=== PATIENT | male | born 1995 | race Caucasian/White ===

== ENCOUNTER 2022-06-06 10:40 | Observation (INO) | payer SELFPAY ==
[2022-06-06] VITALS (25 sets, daily range): BP systolic 76–124; BP diastolic 40–84; PULSE 74–142; RESP 13–32; TEMP 36.1–36.7; O2SAT 98–100; BMI 28.3
--- NOTE | ~2022-06-06 | CT_ITS ---
EXAMINATION: CT abdomen pelvis w con DATE: 06/06/2022 13:45 INDICATION: Left lower quadrant and epigastric pain. TECHNIQUE: Computed tomography (CT) of the abdomen and pelvis was performed with 100 cc Omnipaque 350 intravenous contrast. The dose-length product was 407.97 mGy-cm. Automated exposure control and iter ative reconstruction technique were employed. COMPARISON: No prior studies for comparison. FINDINGS: There is left lower lobe airspace disease. Heart size normal. No significant pleural or per icardial effusion. There is gas and fluid in the distended distal esophagus. No significant vascular abnormality. Study limited by motion artifact. The liver, spleen, pancreas, a drenal glands and kidneys are unremarkable given the limitations of the examination. There are fluid- filled small bowel loops which most likely represents ileus or enteritis. No definite obstruction. No free air or free fluid. Bladder is unremarkable. No lymphadenopathy. No significant vascular abnorma lity. IMPRESSION: 1. Fluid-filled nondilated small bowel loops which may represent ileus or enteritis. No definite obst ruction. 2: Focal left lower lobe airspace disease may represent atelectasis or pneumonia Reviewed, dictated and finalized at location L. CTOR OF DISTRIBUTION IMPRESSION: 1. Fluid-filled nondilated small bowel loops which may represent ileus or enter itis. No definite obstruction. 2: Focal left lower lobe airspace disease may represent atelectasis or pneumon ia
--- NOTE | ~2022-06-06 | XR_ITS ---
EXAMINATION: XR chest 2V DATE: 06/08/2022 08:37 INDICATION: Chest pain. TECHNIQUE: Frontal and lateral views of the chest were obtained. COMPARISON: CT abdomen and pelvis 06/06/2022 FINDINGS: The chest demonstrates clear lungs without pneumonia, pleural effusion, or pneumothorax. Th e heart size is normal. There is mild chronic anterior wedging of 2 thoracic vertebral bodies. IMPRESSION: 1. No acute cardiopulmonary disease. Reviewed, dictated and finalized at location A. RNAL AFFAIRS COMMANDER
[2022-06-06 11:40] LABS: Basophils Percent Auto 0.5 % (0.2-1.2); Eosinophils Absolute Auto 0.1 K/mm3 (0-0.3); Eosinophils Percent Auto 2.5 % (0-4.4); Hematocrit 49.1 % (42.0-52.0); Hemoglobin 16.7 g/dL (14.0-18.0); Immature Granulocyte Absolute 0.02 K/mm3 (0.00-0.031); Immature Granulocyte Percent A 0.4 % (0-0.5); Lymphocytes Absolute Auto 1.49 K/mm3 (0.9-3.2); Lymphocytes Percent Auto 26.6 % (18.3-44.2); Mean Corpuscular Hemoglobin 29.9 pg (26-34); Mean Corpuscular Volume 87.8 fl (80-100); Mean Platelet Volume 9.3 fl (7.4-10.4); Monocytes Absolute Auto 0.5 K/mm3 (0.1-0.6); Monocytes Percent Auto 8.9 % (2.6-8.5); Neutrophils Absolute Auto 3.4 K/mm3 (1.3-6.7); Neutrophils Percent Auto 61.1 % (45.5-73.1); Platelet Count Result 265 k/mm3 (150-375); Red Blood Count 5.59 M/mm3 (4.6-6.20); Red Cell Distribution Width 12.3 % (11.5-14.5); White Blood Count 5.6 K/mm3 (4.5-10.0)
[2022-06-06 11:49] LABS: Alanine Aminotransferase 53 U/L (6-50); Albumin Level 5.1 g/dL (3.5-5.1); Anion Gap 9 mmol/L (8-16); Aspartate Amino Transferase 36 U/L (17-59); Bilirubin,Total 0.7 mg/dL (0.2-1.3); Blood Urea Nitrogen 18 mg/dL (9-20); Calcium 9.5 mg/dL (8.4-10.2); Carbon Dioxide 27 mmol/L (22-30); Chloride 105 mmol/L (98-107); Estimated CRCL calculation 152 ml/min; Estimated Glomerular Filt Rate > 60; Glucose 92 mg/dL (65-110); Potassium 4.2 mmol/L (3.4-5.0); Sodium 141 mmol/L (137-145)
[2022-06-06 11:50] LABS: Alkaline Phosphatase 87 U/L (38-126); Lipase 95 U/L (23-300)
[2022-06-06 11:53] LABS: Appearance Urine Clear (Clear); Bilirubin Urine Negative (Negative); Blood Urine Negative (Negative); Color Urine Yellow (Yellow); Glucose Urine UA Negative (Negative); Ketones Urine Negative (Negative); Leukocyte Esterase Ur Negative LEU/UL (Negative); Nitrate Urine Negative (Negative); Protein Urine Negative (Negative); Specific Grav Ur 1.018 (1.001-1.035); Urobilinogen Urine 0.2 mg/dL (<2.0); pH Urine 8.5 (5.0-9.0)
[2022-06-06 11:56] LABS: Add Urine Microscopic? NO
[2022-06-06] MEDS: IPRATROPIUM BR 0.02% INH SOLN 0.5 MG/2.5 ML VIAL INHALATION (13:30)
[2022-06-06] MEDS: ALBUTEROL SULFATE NEB 2.5 MG/3 ML INH INHALATION (13:30)
[2022-06-06] MEDS: methylPREDNISolone SOD SUCC 125 MG VIAL IV PUSH (13:32)
[2022-06-06] MEDS: diphenhydrAMINE HCl INJ 50 MG/ML VIAL IV PUSH ×2 (13:35→21:54)
[2022-06-06] MEDS: FAMOTIDINE 20 MG/2 ML VIAL IV PUSH ×2 (13:59→22:10)
[2022-06-06] MEDS: SODIUM CHLORIDE 0.9% IV 1,000 ML 999 ML IV CONT ×2 (14:00)
--- NOTE | 2022-06-06 14:03 | ED.GENADULT ---
HPI - General Adult General Chief complaint: Abdominal Pain Stated complaint: abd pain Time Seen by Provider: 06/06/22 11:34 History of Present Illness HPI narrative: 26-year-old male presented the emergency department for evaluation of lower abdominal pain that has been ongoing for the past 8 days. Patient states the abdominal pain started a few days ago he described it as a lower abdominal pain that has been worsened with heavy lifting. Patient states he was intermittently having upper abdominal pain as well. Patient denies any prior abdominal surgical history. Patient is primarily Z[place]ian-speaking and the [employer] computer was used. Related Data Allergies Allergy/AdvReac Type Severity Reaction Status Date / Time Iodinated Contrast Media Allergy Severe Anaphylaxis Verified 06/06/22 17:02 [facility] Family History Family History (Updated 06/06/22 @ 18:36 by Radha Merritt RN) Grandparent Diabetes mellitus Father Cirrhosis Social History Social History Alcohol intake: current Drinks per week: 4 Lack of Transportation: No Lack of Food: Never True Current Housing: I Have Housing Concerned About Future Housing: No Difficulty Paying Gas/Electric Bills: No Difficulty Paying for Meds: No Currently Unemployed: No Education: Grade School Difficulty w/ Childcare or Family Care: No Spiritual care concerns: No Course Course Emergency Course: 26-year-old male presenting for abdominal pain. Patient was ordered a CT scan to evaluate for obstruction, hernia, colitis. NIDHI PURVIS was called at CT. Patient was unresponsive for short period of time. This was thought to be secondary to an anaphylactic reaction to the IV contrast. Patient received large dose of epinephrine, instead of the 0.3 mg of epinephrine he received 1 mg of IM epinephrine. Patient was also treated with IV Solu-Medrol, 125 mg and IV Benadryl, 50 mg. Patient had significant improvement in response to these medications. Patient was stabilized in CT and was brought back to his room. By the time the patient was brought back to his room he was alert oriented and states he was feeling improved. Patient was initially denying any complaints of chest pain but did report patient reports he did have 5 minutes of chest pain, EKG was ordered and showed no evidence of acute STEMI. Patient's initial troponin was negative.. Patient states he does have some burning in his abdomen but this is pain that was similar to when he arrived. Patient and family were updated on the medication error and on the plan for admission. Case was discussed with the hospitalist and patient was admitted for further observation for worsening anaphylaxis. Patient's abdominal CT showed evidence of enteritis. Vital Signs Vital signs: Vital Signs Temperature 97.6 F 06/06/22 11:11 Pulse Rate 79 06/06/22 11:11 Respiratory Rate 14 06/06/22 11:11 Blood Pressure 114/64 06/06/22 11:11 Pulse Oximetry 100 06/06/22 11:11 Oxygen Delivery Room Air 06/06/22 11:11 Temperature 96.9 F L 06/06/22 18:30 Pulse Rate 100 06/06/22 18:30 Respiratory Rate 20 06/06/22 18:30 Blood Pressure 111/57 L 06/06/22 18:30 Pulse Oximetry 100 06/06/22 18:30 Oxygen Delivery Room Air 06/06/22 11:11 Medical Decision Making Vital Signs Vital Signs: Vital Signs Temperature 97.6 F 06/06/22 11:11 Pulse Rate 79 06/06/22 11:11 Respiratory Rate 14 06/06/22 11:11 Blood Pressure 114/64 06/06/22 11:11 Pulse Oximetry 100 06/06/22 11:11 Oxygen Delivery Room Air 06/06/22 11:11 Temperature 96.9 F L 06/06/22 18:30 Pulse Rate 100 06/06/22 18:30 Respiratory Rate 20 06/06/22 18:30 Blood Pressure 111/57 L 06/06/22 18:30 Pulse Oximetry 100 06/06/22 18:30 Oxygen Delivery Room Air 06/06/22 11:11 Lab Data Lab results reviewed: Yes I reviewed the patient's lab results. 06/06/22 11:31 06/06/22 11:31 Labs:
[2022-06-06] MEDS: PANTOPRAZOLE SODIUM IV 40 MG VIAL IV PUSH (14:04)
--- NOTE | 2022-06-06 14:12 | ECG_ITS ---
Measurements Intervals [place] Rate: 97 P: 57 VA: 150 QRS: 25 QRSD: 97 T: 42 QT: 284 QTc: 361 Interpretive Statements SINUS RHYTHM BASELINE ARTIFACT NONSPECIFIC T-WAVE ABNORMALITY BORDERLINE ECG NO PREVIOUS ECG AVAILABLE FOR COMPARISON Electronically Signed On 06-06-2022 15:31:48 HYDRAULIC BARKER OPERATOR by Thuan Maldondao M.D.
--- NOTE | 2022-06-06 14:14 | PC.NURSE ---
Rapid Response was called by CT scan around 1330. CT reports after pt started to receive contrast dye pt started coughing and becoming short of breath. pt's face and lips started to swell as well. pt placed on vital sign monitor in CT room. Response team, ICU physician and EDP Hank at bedside in CT. This RN gave 50mg of Benadryl and 125mg of SOLU-Medrol per Dr. Pryor. VORB. 1mg of Epinephrine was given to pt via response team. EDP Dr. Mckinney made aware. pt placed on nonrebreather and albuterol treatment given by respiratory. pt taken to room 14 and report given to ANDRIA Valadez. Family at bedside and strat paste up worker on and at bedside to educate patient and family as well as answer any questions or concerns.
[2022-06-06] MEDS: MORPHINE SULFATE (*CRX) 2 MG/ML INJ IV PUSH (15:20)
--- NOTE | 2022-06-06 15:21 | PC.NURSE ---
Dr. Mckinney gave order to not give the GI cocktail.
[2022-06-06 15:25] LABS: Troponin I < 0.012 ng/mL (0.000-0.034)
--- NOTE | 2022-06-06 16:30 | PM.IMHP ---
H&P: HPI History of Present Illness Date/Time: 06/06/22 16:30 Chief Complaint: Left-sided abdominal pain. Narrative: This is a very pleasant 26-year-old male with no reported medical problems who presented to the emergency department from home for evaluation of left-sided abdominal pain. Patient provides the following history with help of a video polymer chemist service. He reports intermittent, nonradiating left-sided abdominal pain described as stabbing and burning in nature. It seems to occur more frequently following a meal at which time he feels bloated as well. He has tried taking Gas-X with no relief. His bowel movements have been normal but irregular and at times he feels constipated. He has not noticed any blood or mucus in the stool. No significant nausea or vomiting. He has not had fever, chills, or sweats. He has never had similar symptoms. No sick contacts. CBC, CMP, lipase, and UA were all unremarkable. He was sent for a CT of the abdomen/pelvis for further evaluation and shortly after receiving IV contrast dye he began to feel lightheaded, hot all over, and short of breath. He started coughing and CT staff noticed that he had swelling of the face and lips. Rapid response was called after he became hypotensive and briefly unresponsive. He was given 1 mg of epinephrine IM, 50 mg diphenhydramine, and 125 mg of Solu-Medrol with improvement in his symptoms. CT study was limited by motion artifact but did note fluid-filled nondilated small bowel loops which may represent ileus or enteritis. There was no definite obstruction noted. Focal left lower lobe airspace disease was also noted which may represent atelectasis or pneumonia. He has not had any symptoms to suggest pneumonia and denies sick contacts. He also denies dysphagia and concerns for aspiration. He is being admitted in this setting for close monitoring given anaphylaxis and consultation with GI given ongoing abdominal pain. Review of Systems Review of Systems: Twelve systems were reviewed and are negative except for as per HPI. [facility], [facility] Past Medical History Medical History (Updated 06/07/22 @ 01:08 by Claudette Ambrocio PA-C) No significant past medical history Surgical History Surgical History (Updated 06/07/22 @ 01:04 by Claudette Ambrocio PA-C) No history of previous surgery Family History Family History Grandparent Diabetes mellitus Father Cirrhosis Social History Social History (Updated 06/07/22 @ 01:05 by Claudette Ambrocio PA-C) Social History: Surrogate medical decision maker: Kassy Julien, sister ([phone]). Aunt Radha is also an emergency contact ([phone]). Code status: Full code. Smoking status: Never smoker Alcohol intake: current Drinks per week: 4 Substance use: never Lack of Transportation: No Lack of Food: Never True Current Housing: I Have Housing Concerned About Future Housing: No Difficulty Paying Gas/Electric Bills: No Difficulty Paying for Meds: No Currently Unemployed: No Education: Grade School Difficulty w/ Childcare or Family Care: No Additional living arrangements comments: Lives with family in [place]. Additional occupation/education comments: Works at a local [employer]. Spiritual care concerns: No Meds Home Medications and Allergies Allergies Allergy/AdvReac Type Severity Reaction Status Date / Time Iodinated Contrast Media Allergy Severe Anaphylaxis Verified 06/06/22 17:02 Vital Signs Vital Signs - 24 hr 06/06/22 11:11 06/06/22 12:54 06/06/22 13:30 Temperature 97.6 F Pulse Rate 79 74 132 H Respiratory Rate 14 16 32 H Blood Pressure 114/64 124/74 Pulse Oximetry 100 100 Oxygen Delivery Room Air Exam Narrative: General: Mildly ill-appearing gentleman in the semi-Connor position in bed in no acute distress. Weight: 72.72 kg. BMI: 24.4. HEENT: PERRL, EOMI. Sclera anicteric. Conjunctiva mildly
[2022-06-06] MEDS: SODIUM CHLORIDE 0.9% IV 1,000 ML 125 ML IV CONT (16:52)
--- NOTE | 2022-06-06 18:11 | ADMGEN ---
Addendum entered by Radha Merritt RN 06/06/22 18:22: called flavoring oil filterer+ Zaria #[id number] for admission question Original Note: This patient, Horacio Jacobs, was admitted to IMU Room 1809;Snuff Maker machine in room Patient/family oriented to hospital policies and general routines including ID bracelet, bed and alarms, visiting hours, pain management, procedures, bathroom and other care routines, personal items, smoking policy, room service/diet, and visiting hours. Information on how to activate the Rapid Response Team has been discussed. Patient/Family are encouraged to report perceived risks to care and to ask questions if they do not understand what they are told or what they should do.
[2022-06-06] MEDS: ONDANSETRON INJ 4 MG/2 ML VIAL IV PUSH (21:55)
[2022-06-07] VITALS (20 sets, daily range): BP systolic 89–139; BP diastolic 43–65; PULSE 77–116; RESP 16–22; TEMP 36.5–36.9; O2SAT 96–100
[2022-06-07] MEDS: SODIUM CHLORIDE 0.9% IV 1,000 ML 125 ML IV CONT ×3 (00:22→17:51)
[2022-06-07] MEDS: methylPREDNISolone SOD SUCC 125 MG VIAL 60 MG IV PUSH ×4 (00:22→17:52)
--- NOTE | 2022-06-07 06:55 | WPDGICN ---
Assessment and Plan Assessment and plan (1) Abdominal pain: Code(s): R10.9 - Unspecified abdominal pain Status: Acute Assessment and Plan: EGD will be done this morning. (2) Abnormal computed tomography of abdomen and pelvis: Code(s): R93.5 - Abnormal findings on diagnostic imaging of other abdominal regions, including retroperitoneum Status: Acute Assessment and Plan: CT scan was nonspecific but showed air-fluid levels suggestive of ileus (3) Anaphylactic reaction to contrast media: Code(s): T78.2XXA - Anaphylactic shock, unspecified, initial encounter; T50.8X5A - Adverse effect of diagnostic agents, initial encounter Status: Acute Assessment and Plan: He was sent for a CT of the abdomen/pelvis for further evaluation and shortly after receiving IV contrast dye he began to feel lightheaded, hot all over, and short of breath. He started coughing and CT staff noticed that he had swelling of the face and lips. Rapid response was called after he became hypotensive and briefly unresponsive. He was given 1 mg of epinephrine IM, 50 mg diphenhydramine, and 125 mg of Solu-Medrol with improvement in his symptoms. Plan EGD will be done this morning. If no significant findings and he is able to eat, then we may let him go home continue investigation as an outpatient. GI Consult Note Consult date/time: 06/07/22 06:55 HPI: Horacio Jacobs is a 26 year old male who presented to emergency room yesterday with complaints of left upper quadrant and epigastric pain for 8 days. He would sometimes feel worse after eating. He was nauseated but did not vomit. He was taking ibuprofen for that pain. Would help briefly. He has not had a change in bowel habits. There was no fever. His history was obtained through an spanish medical interpreter. He has no prior history of gastrointestinal diseases. He was sent to CT scan where he had a reaction, apparently anaphylaxis. CT scan showed only; 1. Fluid-filled nondilated small bowel loops which may represent ileus or enteritis. No definite obstruction. 2:? Focal left lower lobe airspace disease may represent atelectasis or pneumonia the pain is better today because he has had nothing to eat. Review of Systems Review of Systems: All systems reviewed & are unremarkable except as noted in HPI and below [facility] Past Medical History Medical History (Updated 06/07/22 @ 01:08 by Claudette Ambrocio PA-C) No significant past medical history Surgical History Surgical History (Updated 06/07/22 @ 01:04 by Claudette Ambrocio PA-C) No history of previous surgery Family History Family History Grandparent Diabetes mellitus Father Cirrhosis Social History Social History (Updated 06/07/22 @ 01:05 by Claudette Ambrocio PA-C) Social History: Surrogate medical decision maker: Kassy Julien, sister ([phone]). Aunt Radha is also an emergency contact ([phone]). Code status: Full code. Smoking status: Never smoker Alcohol intake: current Drinks per week: 4 Substance use: never Lack of Transportation: No Lack of Food: Never True Current Housing: I Have Housing Concerned About Future Housing: No Difficulty Paying Gas/Electric Bills: No Difficulty Paying for Meds: No Currently Unemployed: No Education: Grade School Difficulty w/ Childcare or Family Care: No Additional living arrangements comments: Lives with family in [place]. Additional occupation/education comments: Works at a local [employer]. Spiritual care concerns: No Meds Home Medications and Allergies Allergies Allergy/AdvReac Type Severity Reaction Status Date / Time Iodinated Contrast Media Allergy Severe Anaphylaxis Verified 06/06/22 17:02 Vital Signs Vital Signs - 24 hr 06/06/22 11:11 06/06/22 12:54 06/06/22 13:30 Temperature 36.4 C Pulse Rate 79 74 132 H Respirator
[2022-06-07] MEDS: FAMOTIDINE 20 MG/2 ML VIAL IV PUSH ×2 (08:03→20:44)
[2022-06-07] MEDS: PANTOPRAZOLE SODIUM IV 40 MG VIAL IV PUSH (08:04)
--- NOTE | 2022-06-07 10:32 | WPDANESEPPF ---
Anes - Initial Pre Proc Eval Procedure: Operation Date: 06/07/22 12:00 Proposed Procedures p Esophagogastroduodenoscopy - Mik Martinez MD Date/Time: 06/07/22 10:32 Surgeon: Kofi Baker MD Pre Op Diagnosis: Abdominal Pain, Anaphylactic Reaction Patient Data Age: 26 Gender: M Height: 1.65 m Weight: 77.1 kg Last Vital Signs Temp 97.8 F 06/07/22 08:00 Pulse 101 H 06/07/22 08:00 Resp 16 06/07/22 08:00 BP 119/56 L 06/07/22 08:00 Pulse Ox 97 06/07/22 09:53 O2 Del Method Room Air 06/07/22 09:53 Allergies Allergy/AdvReac Type Severity Reaction Status Date / Time Iodinated Contrast Media Allergy Severe Anaphylaxis Verified 06/06/22 17:02 Laboratory Tests 06/06/22 06/06/22 06/06/22 11:31 11:31 11:31 WBC 5.6 K/mm3 K/mm3 (4.5-10.0) RBC 5.59 M/mm3 M/mm3 (4.6-6.20) Hgb 16.7 g/dL g/dL (14.0-18.0) Hct 49.1 % % (42.0-52.0) MCV 87.8 fl fl (80-100) MCH 29.9 pg pg (26-34) MCHC 34.0 g/dl g/dl (32-36) RDW 12.3 % % (11.5-14.5) Plt Count 265 k/mm3 k/mm3 (150-375) MPV 9.3 fl fl (7.4-10.4) Immature Gran % (Auto) 0.4 % % (0-0.5) Neut % (Auto) 61.1 % % (45.5-73.1) Lymph % (Auto) 26.6 % % (18.3-44.2) [place] % (Auto) 8.9 % H % (2.6-8.5) Eos % (Auto) 2.5 % % (0-4.4) Baso % (Auto) 0.5 % % (0.2-1.2) Lymph # (Auto) 1.49 K/mm3 K/mm3 (0.9-3.2) [place] # (Auto) 0.5 K/mm3 K/mm3 (0.1-0.6) Eos # (Auto) 0.1 K/mm3 K/mm3 (0-0.3) Baso # (Auto) 0.0 K/mm3 K/mm3 (0.0-0.1) Abs Immat Gran (auto) 0.02 K/mm3 K/mm3 (0.00-0.031) Absolute Neuts (auto) 3.4 K/mm3 K/mm3 (1.3-6.7) Absolute Nucleated RBC 0.0 K/mm3 K/mm3 (0.0-0.012) Nucleated RBC % 0.0 % % (0.0-0.2) Sodium 141 mmol/L mmol/L (137-145) Potassium 4.2 mmol/L mmol/L (3.4-5.0) Chloride 105 mmol/L mmol/L (98-107) Carbon Dioxide 27 mmol/L mmol/L (22-30) Anion Gap 9 mmol/L mmol/L (8-16) BUN 18 mg/dL mg/dL (9-20) Creatinine 0.60 mg/dL L mg/dL (0.7-1.3) Estim Creat Clear Calc 152 ml/min ml/min Estimated GFR > 60 (59 - ) Glucose 92 mg/dL mg/dL (65-110) Calcium 9.5 mg/dL mg/dL (8.4-10.2) Total Bilirubin 0.7 mg/dL mg/dL (0.2-1.3) AST 36 U/L U/L (17-59) ALT 53 U/L H U/L (6-50) Alkaline Phosphatase 87 U/L U/L (38-126) Troponin I < 0.012 ng/mL ng/mL (0.000-0.034) Total Protein 8.0 g/dL g/dL (6.3-8.2) Albumin 5.1 g/dL g/dL (3.5-5.1) Lipase 95 U/L U/L (23-300) Urine Color Urine Appearance Urine pH Ur Specific [place] Urine Protein Urine Glucose (UA) Urine Ketones Ur Blood (Man) Urine Nitrate Urine Bilirubin Urine Urobilinogen Leukocyte Esterase Rfl 06/06/22 11:41 WBC RBC Hgb Hct MCV MCH MCHC RDW Plt Count MPV Immature Gran % (Auto) Neut % (Auto) Lymph % (Auto) [place] % (Auto) Eos % (Auto) Baso % (Auto) Lymph # (Auto) [place] # (Auto) Eos # (Auto) Baso # (Auto) Abs Immat Gran (auto) Absolute Neuts (auto) Absolute Nucleated RBC Nucleated RBC % Sodium Potassium Chloride Carbon Dioxide Anion Gap BUN Creatinine Estim Creat Clear Calc Estimated GFR Glucose Calcium Total Bilirubin AST ALT Alkaline Phosphatase Troponin I Total Protein Albumin Lipase Urine Color Y
[2022-06-07] MEDS: LACTATED RINGERS 1,000 ML 150 ML IV CONT (10:43)
--- NOTE | 2022-06-07 11:04 | PC.NURSE ---
@ 1015 to gi lab for egd procedure
--- NOTE | 2022-06-07 11:04 | SUR.PREOP ---
Spoke with Emily Lap Welder #[id number] for pre-op information. Pt. verbalized understanding. No questions or concerns voiced.
[2022-06-07] MEDS: SIMETHICONE ORAL SUSPENSION 20 MG/0.3 ML 30 ML BOTTLE 0.6 ML PO (11:32)
[2022-06-07 12:35] LABS: CRP 1.8 mg/dL (<1.0)
--- NOTE | 2022-06-07 14:01 | PM.DS ---
DS: Admitting Diagnosis Discharge Date 06/07/22 Admitting Diagnosis Abdominal pain Anaphylaxis reaction to Contrast DS: Discharge Diagnosis Discharge Diagnosis Plan Viral Enteritis Anaphylactic Reaction to Contrast DS: Summary Hospital Course Reason for hospitalization: Abdominal pain Hospital Course: 26-year-old male with no reported medical problems who presented to the emergency department from home for evaluation of left-sided abdominal pain. He was ordered for CT abdomen with contrast, had anaphylactic reaction to contrast, responded well to epinephrine, steroid. GI was consulted, underwent EGD which was unremarkable. CT abdomen was s/o enteritis. Tolerated diet well, discharged home in stable condition. Status at Discharge Functional status at discharge: independent ambulation Overall status at discharge: patient is back to baseline Time Spent with Patient Time attestation: Total time spent providing and/or coordinating discharge services: Exam Const: General: comfortable HENMT: Mouth: Yes moist mucous membranes Eyes: General: appearance normal, both eyes and all related structures Neck: Neck: supple Resp: Effort & Inspection: normal respiratory effort Auscultation: clear to auscultation bilaterally Cardio: Rate: regular rate Rhythm: regular rhythm GI: GI Palp: Yes Soft to palpation Auscultation: normal bowel sounds Skin: General skin exam: normal color Neuro: Motor exam (neuro): 5/5 motor strength present throughout DS: Data Data Completed and Pending Labs on day of discharge: Labs from last 24 hours 06/07/22 06/06/22 12:18 11:31 Troponin I < 0.012 C-Reactive Protein 1.8 H Discharge Plan Discharge Attending physician on discharge: Verona Mckeon Consulting providers: Mik Martinez Discharging Clinician: Verona Mckeon Anticipated Discharge Date/Time: 06/07/22 17:00 Patient Disposition: Home, Self-Care Activity: as tolerated Diet: as tolerated Patient Instructions: Antibiotic Form, General Allergic Reaction (ED) Stand Alone Forms: General Discharge Information Follow-up/Referrals: Mik Martinez MD [Physician] - 2 Weeks Discharge Medications: New pantoprazole [Protonix] 40 mg tablet,delayed release (DR/EC) 40 mg PO QAM Qty: 30 0RF Date of admission: 06/06/22 16:31 Primary Care Provider: UNKNOWN,DOCTOR Admitting Provider: Kofi Baker Attending physician on admission: Kofi Baker Condition: Improved [facility] Discharge Billing Hospital Discharge Hospital Discharge: 15088 Hosp D/C 30 Min
--- NOTE | 2022-06-07 19:25 | PM.IMPN ---
Progress Note: A&P Assessment and Plan (1) Left sided abdominal pain: Code(s): R10.9 - Unspecified abdominal pain Status: Acute Assessment and Plan: 26 years old M with no PMH presented with abdominal pain, had anaphylactic reaction to contrast in ER, responded well to epinephrine, steroids. GI was consulted, EGD was unremarkable. Tolerating diet very well. He was ready for discharge but c/o chest heaviness since after EGD.Discharge was cancelled. Will monitor him overnight on tele. Hopefully should be able to go home tomorrow morning. Time Spent With Patient Time with patient: 15 - 25 minutes Subjective Date/time seen: 06/07/22 19:25 Interval history: s/p EGD today c/o chest heaviness Review of Systems Review of Systems: All systems reviewed & are unremarkable except as noted in HPI and below Exam Const: General: comfortable and no acute distress HENMT: Mouth: Yes moist mucous membranes Eyes: Sclera: sclerae normal Neck: Neck: supple Resp: Effort & Inspection: normal respiratory effort Auscultation: clear to auscultation bilaterally Cardio: Rate: regular rate Rhythm: regular rhythm GI: GI Palp: Yes Soft to palpation Auscultation: normal bowel sounds Extrem: General: normal to inspection Psych: Mental Status: mental status grossly normal Objective Data Vital Signs Vital Signs: Vital Signs - 24 hr 06/06/22 19:52 06/06/22 20:00 06/06/22 20:00 Temperature 98.0 F Pulse Rate 111 H 109 H 109 H Respiratory Rate 18 18 Blood Pressure 114/65 Pulse Oximetry 98 98 Oxygen Delivery Room Air 06/06/22 22:00 06/06/22 23:57 06/07/22 00:00 Temperature 97.8 F Pulse Rate 98 92 102 H Respiratory Rate 18 Blood Pressure 108/53 L Pulse Oximetry 99 Oxygen Delivery 06/07/22 00:00 06/07/22 02:00 06/07/22 04:00 Temperature Pulse Rate 102 H 80 78 Respiratory Rate 18 Blood Pressure Pulse Oximetry 99 Oxygen Delivery Room Air 06/07/22 04:00 06/07/22 04:00 06/07/22 06:00 Temperature 98.0 F Pulse Rate 78 78 88 Respiratory Rate 18 18 Blood Pressure 110/47 L Pulse Oximetry 99 99 Oxygen Delivery Room Air 06/07/22 08:00 06/07/22 09:53 06/07/22 10:15 Temperature 97.8 F 98.3 F Pulse Rate 101 H 113 H Respiratory Rate 16 16 Blood Pressure 119/56 L 127/65 Pulse Oximetry 98 97 100 Oxygen Delivery Room Air Room Air 06/07/22 08:00 06/07/22 08:00 06/07/22 11:39 Temperature Pulse Rate 110 H 110 H 96 Respiratory Rate 16 17 Blood Pressure 89/43 L Pulse Oximetry 97 96 Oxygen Delivery Room Air Room Air 06/07/22 11:49 06/07/22 11:59 06/07/22 12:00 Temperature 97.7 F Pulse Rate 96 95 97 Respiratory Rate 22 H 17 16 Blood Pressure 103/58 L 101/55 L 116/60 Pulse Oximetry 99 96 100 Oxygen Delivery Room Air Room Air 06/07/22 12:15 06/07/22 12:15 06/07/22 14:00 Temperature Pulse Rate 112 H 112 H Respiratory Rate Blood Pressure Pulse Oximetry Oxygen Delivery Room Air 06/07/22 15:19 06/07/22 16:00 06/07/22 16:45 Temperature 98.5 F Pulse Rate 116 H 108 H 113 H Respiratory Rate 18 Blood Pressure 117/49 L Pulse Oximetry 96 Oxygen Delivery Intake/Output Intake/Output: Intake & Output 06/04/22 06/05/22 06/06/22 06/07/22 23:59 23:59 23:59 23:59 Intake Total 2100 4880 Output Total 550 1250 Balance 1550 3630 Meds/Results Medications: Active Medications Generic Name Dose Route Start Last Admin Trade Name Freq PRN Reason Stop Dose Admin Acetaminophen 650 mg 06/06/22 20:13 Acetaminophen 325 Mg Tablet PO Q6H PRN Mild Pain (1-3) or Fever Diphenhydramine HCl 50 mg 06/06/22 21:19 06/06/22 21:54 Diphenhydramine Hcl Inj 50 Mg/Ml Vial IV PUSH 50 mg Q4H PRN Administration Itching Famotidine 20 mg 06/06/22 21:20 06/07/22 08:03 Famotidine 20 Mg/2 Ml Vial IV PUSH 20 mg Q12HR DIEGO Administration Sodium Chloride 1,000 mls @ 125 mls/hr
[2022-06-07] MEDS: HEPARIN SODIUM 5,000 UNITS/ML VIAL 5000 UNITS SUB-Q (20:41)
[2022-06-08] VITALS: PULSE 78
[2022-06-08] MEDS: SODIUM CHLORIDE 0.9% IV 1,000 ML 125 ML IV CONT ×2 (00:06→09:06)
[2022-06-08] MEDS: methylPREDNISolone SOD SUCC 125 MG VIAL 60 MG IV PUSH ×3 (00:07→12:49)
--- NOTE | 2022-06-08 03:06 | PC.NURSE ---
This patient, Horacio Jacobs, was transferred to [[id number] ] on 06/08/22 at 0306. Personal belongings sent with patient. Report given to tyler lopez ]. Appropriate documentation sent with patient.
[2022-06-08 04:00] VITALS: PULSE 71
[2022-06-08 04:07] VITALS: BP 109/58; PULSE 71; RESP 16; TEMP 36.2; O2SAT 100
[2022-06-08 06:21] LABS: Basophils Percent Auto 0.1 % (0.2-1.2); Hematocrit 39.9 % (42.0-52.0); Hemoglobin 13.5 g/dL (14.0-18.0); Immature Granulocyte Absolute 0.18 K/mm3 (0.00-0.031); Immature Granulocyte Percent A 1.1 % (0-0.5); Lymphocytes Absolute Auto 0.81 K/mm3 (0.9-3.2); Lymphocytes Percent Auto 4.7 % (18.3-44.2); Mean Corpuscular HGB Conc 33.8 g/dl (32-36); Mean Corpuscular Hemoglobin 29.6 pg (26-34); Mean Corpuscular Volume 87.5 fl (80-100); Monocytes Absolute Auto 0.7 K/mm3 (0.1-0.6); Monocytes Percent Auto 4.3 % (2.6-8.5); Neutrophils Absolute Auto 15.3 K/mm3 (1.3-6.7); Neutrophils Percent Auto 89.8 % (45.5-73.1); Platelet Count Result 263 k/mm3 (150-375); Red Blood Count 4.56 M/mm3 (4.6-6.20); Red Cell Distribution Width 12.5 % (11.5-14.5); White Blood Count 17.1 K/mm3 (4.5-10.0)
[2022-06-08 06:36] LABS: Anion Gap 3 mmol/L (8-16); Blood Urea Nitrogen 13 mg/dL (9-20); Calcium 8.4 mg/dL (8.4-10.2); Carbon Dioxide 25 mmol/L (22-30); Chloride 107 mmol/L (98-107); Estimated CRCL calculation 137 ml/min; Estimated Glomerular Filt Rate > 60; Glucose 135 mg/dL (65-110); Potassium 3.6 mmol/L (3.4-5.0); Sodium 135 mmol/L (137-145)
--- NOTE | 2022-06-08 07:41 | PM.IMPN ---
Progress Note: A&P Assessment and Plan (1) Left sided abdominal pain: Code(s): R10.9 - Unspecified abdominal pain Status: Acute Assessment and Plan: 26 years old M with no PMH presented with abdominal pain, had anaphylactic reaction to contrast in ER, responded well to epinephrine, steroids. GI was consulted, EGD was unremarkable. Tolerating diet very well. patient denies chest heaviness .monitor him overnight on tele, no new issues or events overnight. Patient is afebrile, hemodynamically stable, leukocytosis likely secondary to reaction. chest x-ray today shows no acute cardiopulmonary issues. patient will be discharged home today, will see primary care doctor in 1 week for follow-up. Subjective Date/time seen: 06/08/22 07:41 I saw examined patient today. Patient feels comfortable, denies chest pain, shortness of breath, , nausea vomiting. Patient is afebrile, hemodynamically stable Exam Narrative: General: no acute distress. Weight: 72.72 kg. BMI: 24.4. HEENT: PERRL, EOMI. Sclera anicteric. Conjunctiva mildly injected. There is some periorbital swelling bilaterally. Upper lip is edematous. Tongue appears normal size. No significant swelling of the posterior pharynx. Neck: Supple. No stridor. Respiratory: Lungs are clear to auscultation bilaterally. Cardiovascular: Regular rate and rhythm with S1-S2. Gastrointestinal: Abdomen is soft and nondistended with positive bowel sounds. no tenderness, No guarding or rebound tenderness. Skin: Warm and dry. No rash or lesions on limited exam. Extremities: No cyanosis, clubbing, or edema. Radial and pedal pulses intact. Neurological: Alert. Cranial nerves 2-12 are grossly intact. No gross focal deficits to casual conversation. Psychiatric: Pleasant and cooperative with normal mood and affect. Objective Data Vital Signs Vital Signs: Vital Signs - 24 hr 06/07/22 08:00 06/07/22 09:53 06/07/22 10:15 Temperature 97.8 F 98.3 F Pulse Rate 101 H 113 H Respiratory Rate 16 16 Blood Pressure 119/56 L 127/65 Pulse Oximetry 98 97 100 Oxygen Delivery Room Air Room Air 06/07/22 08:00 06/07/22 08:00 06/07/22 11:39 Temperature Pulse Rate 110 H 110 H 96 Respiratory Rate 16 17 Blood Pressure 89/43 L Pulse Oximetry 97 96 Oxygen Delivery Room Air Room Air 06/07/22 11:49 06/07/22 11:59 06/07/22 12:00 Temperature 97.7 F Pulse Rate 96 95 97 Respiratory Rate 22 H 17 16 Blood Pressure 103/58 L 101/55 L 116/60 Pulse Oximetry 99 96 100 Oxygen Delivery Room Air Room Air 06/07/22 12:15 06/07/22 12:15 06/07/22 14:00 Temperature Pulse Rate 112 H 112 H Respiratory Rate Blood Pressure Pulse Oximetry Oxygen Delivery Room Air 06/07/22 15:19 06/07/22 16:00 06/07/22 16:45 Temperature 98.5 F Pulse Rate 116 H 108 H 113 H Respiratory Rate 18 Blood Pressure 117/49 L Pulse Oximetry 96 Oxygen Delivery 06/07/22 18:00 06/07/22 20:00 06/07/22 20:00 Temperature 98.0 F Pulse Rate 100 102 H 93 Respiratory Rate 20 Blood Pressure 139/55 L Pulse Oximetry 97 Oxygen Delivery Room Air 06/07/22 20:00 06/07/22 22:00 06/07/22 23:47 Temperature 97.8 F Pulse Rate 109 H 93 77 Respiratory Rate 20 Blood Pressure 101/51 L Pulse Oximetry 100 Oxygen Delivery 06/08/22 00:00 06/08/22 04:07 06/08/22 04:00 Temperature 97.1 F L Pulse Rate 78 71 71 Respiratory Rate 16 Blood Pressure 109/58 L Pulse Oximetry 100 Oxygen Delivery Intake/Output Intake/Output: Intake & Output 06/05/22 06/06/22 06/07/22 06/08/22 23:59 23:59 23:59 23:59 Intake Total 2100 4880 1200 Output Total 550 1250 Balance 1550 3630 1200 Meds/Results Medications: Active Medications Generic Name Dose Route Start Last Admin Trade Name Freq PRN Reason Stop Dose Admin Acetaminophen 650 mg 06/06/22 20:13 Acetaminophen 325 Mg Tablet PO Q6H PRN Mild Pain (1-3) or Fever Diphenhydram
[2022-06-08 07:44] LABS: Toxigenic C. Diff NEGATIVE (NEGATIVE)
[2022-06-08 08:00] VITALS: BP 135/66; PULSE 67; RESP 16; TEMP 36.6; O2SAT 100
[2022-06-08 09:00] VITALS: PULSE 101
[2022-06-08] MEDS: HEPARIN SODIUM 5,000 UNITS/ML VIAL 5000 UNITS SUB-Q (09:06)
[2022-06-08] MEDS: FAMOTIDINE 20 MG/2 ML VIAL IV PUSH (09:06)
[2022-06-08] MEDS: PANTOPRAZOLE SODIUM IV 40 MG VIAL IV PUSH (09:07)
--- NOTE | 2022-06-08 09:11 | WPDANESPN ---
Anes - Prog Note Post-Op Date/Time: 06/08/22 09:11 Cardiovascular status: normal Respiratory status: normal Airway patency: baseline Mental status: baseline Post-Op hydration status: normal Vital Signs: Last Vital Signs Temp 97.8 F 06/08/22 08:00 Pulse 67 06/08/22 08:00 Resp 16 06/08/22 08:00 BP 135/66 06/08/22 08:00 Pulse Ox 100 06/08/22 08:00 O2 Del Method Room Air 06/07/22 20:00 Pain Score (VAS): 0 I/O: Intake & Output 06/07/22 06/08/22 06/08/22 23:59 07:59 15:59 Intake Total 1120 1200 1000 Balance 1120 1200 1000 Laboratory Tests 06/08/22 05:40 06/08/22 05:40 06/07/22 06/08/22 06/08/22 12:18 05:40 05:40 WBC 17.1 H RBC 4.56 L Hgb 13.5 L D Hct 39.9 L MCV 87.5 MCH 29.6 MCHC 33.8 RDW 12.5 Plt Count 263 MPV 10.0 Immature Gran % (Auto) 1.1 H Neut % (Auto) 89.8 H Lymph % (Auto) 4.7 L [place] % (Auto) 4.3 Eos % (Auto) 0.0 Baso % (Auto) 0.1 L Lymph # (Auto) 0.81 L [place] # (Auto) 0.7 H Eos # (Auto) 0.0 Baso # (Auto) 0.0 Abs Immat Gran (auto) 0.18 H Absolute Neuts (auto) 15.3 H Absolute Nucleated RBC 0.0 Nucleated RBC % 0.0 Sodium 135 L Potassium 3.6 Chloride 107 Carbon Dioxide 25 Anion Gap 3 L BUN 13 D Creatinine 0.60 L Estim Creat Clear Calc 137 Estimated GFR > 60 Glucose 135 H Calcium 8.4 C-Reactive Protein 1.8 H C. difficile (PCR) 06/08/22 06:42 WBC RBC Hgb Hct MCV MCH MCHC RDW Plt Count MPV Immature Gran % (Auto) Neut % (Auto) Lymph % (Auto) [place] % (Auto) Eos % (Auto) Baso % (Auto) Lymph # (Auto) [place] # (Auto) Eos # (Auto) Baso # (Auto) Abs Immat Gran (auto) Absolute Neuts (auto) Absolute Nucleated RBC Nucleated RBC % Sodium Potassium Chloride Carbon Dioxide Anion Gap BUN Creatinine Estim Creat Clear Calc Estimated GFR Glucose Calcium C-Reactive Protein C. difficile (PCR) Negative Post-procedural complaints: none Patient Feedback: Patient satisfied with anesthetic care.
--- NOTE | 2022-06-08 11:54 | PM.DS ---
DS: Admitting Diagnosis Discharge Date today Admitting Diagnosis anaphylaxis reaction to contrast DS: Summary Hospital Course Reason for hospitalization: allergic reaction to contrast Hospital Course: 26 years old M with no PMH presented with abdominal pain, had anaphylactic reaction to contrast in ER, responded well to epinephrine, steroids. GI was consulted, EGD was unremarkable. Tolerating diet very well.? patient denies chest heaviness .monitor him overnight on tele,? no new issues or events overnight.? Patient is afebrile, hemodynamically stable, leukocytosis likely secondary to? reaction. ? chest x-ray today shows no acute cardiopulmonary issues. patient is Ma[place] speaker, the conversation is interpreted by his father ? patient will be discharged home today, will see primary care doctor in 1 week for follow-up.? Time Spent with Patient Time attestation: Total time spent providing and/or coordinating discharge services: DS: Data Data Completed and Pending Labs on day of discharge: Labs from last 24 hours 06/08/22 06/08/22 06/08/22 06:42 05:40 05:40 WBC 17.1 H RBC 4.56 L Hgb 13.5 L D Hct 39.9 L MCV 87.5 MCH 29.6 MCHC 33.8 RDW 12.5 Plt Count 263 MPV 10.0 Immature Gran % (Auto) 1.1 H Neut % (Auto) 89.8 H Lymph % (Auto) 4.7 L [place] % (Auto) 4.3 Eos % (Auto) 0.0 Baso % (Auto) 0.1 L Lymph # (Auto) 0.81 L [place] # (Auto) 0.7 H Eos # (Auto) 0.0 Baso # (Auto) 0.0 Abs Immat Gran (auto) 0.18 H Absolute Neuts (auto) 15.3 H Absolute Nucleated RBC 0.0 Nucleated RBC % 0.0 Sodium 135 L Potassium 3.6 Chloride 107 Carbon Dioxide 25 Anion Gap 3 L BUN 13 D Creatinine 0.60 L Estim Creat Clear Calc 137 Estimated GFR > 60 Glucose 135 H Calcium 8.4 C-Reactive Protein C. difficile (PCR) Negative 06/07/22 12:18 WBC RBC Hgb Hct MCV MCH MCHC RDW Plt Count MPV Immature Gran % (Auto) Neut % (Auto) Lymph % (Auto) [place] % (Auto) Eos % (Auto) Baso % (Auto) Lymph # (Auto) [place] # (Auto) Eos # (Auto) Baso # (Auto) Abs Immat Gran (auto) Absolute Neuts (auto) Absolute Nucleated RBC Nucleated RBC % Sodium Potassium Chloride Carbon Dioxide Anion Gap BUN Creatinine Estim Creat Clear Calc Estimated GFR Glucose Calcium C-Reactive Protein 1.8 H C. difficile (PCR) Discharge Plan Discharge Attending physician on discharge: Ángel Aly Consulting providers: Mik Martinez Discharging Clinician: Ángel Aly Anticipated Discharge Date/Time: 06/08/22 11:51 Patient Disposition: Home, Self-Care Activity: as tolerated Diet: as tolerated Patient Instructions: Antibiotic Form, General Allergic Reaction (ED) Stand Alone Forms: General Discharge Information Follow-up/Referrals: Mik Martinez MD [Physician] - 2 Weeks Ángel Aly MD [Physician] - (error input. no need to follow up with me ) Discharge Medications: New pantoprazole [Protonix] 40 mg tablet,delayed release (DR/EC) 40 mg PO QAM Qty: 30 0RF Date of admission: 06/06/22 16:31 Primary Care Provider: UNKNOWN,DOCTOR Admitting Provider: Kofi Baker Attending physician on admission: Kofi Baker Condition: Improved
[2022-06-08 12:00] VITALS: BP 116/55; PULSE 79; RESP 16; TEMP 37.1; O2SAT 100
== END 2022-06-08 13:20 | disposition home or self-care (01) ==
LOC: ANHED 16:31 → ANHIMU 06-07 08:06 → ANH3MED 06-08 11:54 → ANHIMU 06-09 12:17
PROVIDERS: Internal Medicine; Internal Medicine Gastroenterology; Physician Assistant; Admitting Provider Internal Medicine; Emergency Provider Emergency Medicine; Visit Provider Hospitalist
PROC: 0DJ08ZZ Inspection of Upper Intestinal Tract, Via Natural or Artificial Opening Endoscopic (ICD-10-PCS; CPT 43235; principal; 2022-06-07 12:00)
DX: T78.2XXA Anaphylactic shock, unspecified, initial encounter (principal); T50.8X5A Adverse effect of diagnostic agents, initial encounter; R93.5 Abnormal findings on diagnostic imaging of other abdominal regions, including retroperitoneum; R94.31 Abnormal electrocardiogram [ECG] [EKG]; R91.8 Other nonspecific abnormal finding of lung field; R07.9 Chest pain, unspecified; E66.3 Overweight; Z68.28 Body mass index [BMI] 28.0-28.9, adult; F10.90 Alcohol use, unspecified, uncomplicated
CPT/HCPCS: 43239; 36415; 71046; 74177; 80048; 80053; 81003; 83690; 84484; 85025; 86140; 87045; 87081; 87269; 87272; 87427; 87493; 93005; 94640; 96361; 96365; 96374; 96375; 96376; 99285; A9270; C9113; G0378; G0379; J0131; J0171; J0461; J1200; J1644; J2270; J2405; J2704; J2930; J7030; J7120; Q9967